=== PATIENT | male | born 1975 | race Caucasian/White ===

== ENCOUNTER → 2018-05-30 | Emergency (ER) | payer OTHER ==
[~2018-05-30] VITALS: Ht 172.7 cm; Wt 77.1 kg
== END | disposition home or self-care (01) ==
LOC: ER 17:59 → EDSEX 18:16
DX: K59.09 Other constipation (principal); R10.84 Generalized abdominal pain

== ENCOUNTER 2023-03-05 15:31 | Emergency (ER) | payer OTHER ==
[~2023-03-05] VITALS: Ht 172.7 cm; Wt 81.6 kg
[2023-03-05] MEDS ORDERED: GLUMETZA500 MG PO (16:18)
== END 2023-03-05 21:21 | disposition home or self-care (01) ==
LOC: ER 15:31
DX: M79.672 Pain in left foot (principal)